=== PATIENT | male | born 1950 | race Caucasian/White ===

== ENCOUNTER → 2016-11-02 | Outpatient (CLI) | payer MEDICARE, BC | END | disposition home or self-care (01) | LOC: CVU 09:01 | PROVIDERS: ATTEND Internal Medicine Cardiovascular Disease | DX: I10 Essential (primary) hypertension (principal); E78.5 Hyperlipidemia, unspecified; R73.03 Prediabetes; F19.20 Other psychoactive substance dependence, uncomplicated; Z86.79 Personal history of other diseases of the circulatory system; Z95.1 Presence of aortocoronary bypass graft; F12.90 Cannabis use, unspecified, uncomplicated; I25.10 Atherosclerotic heart disease of native coronary artery without angina pectoris | CPT/HCPCS: 93922 ==

== ENCOUNTER → 2016-12-30 | Outpatient (CLI) | payer MEDICARE, BC ==
[~2016-12-30] MED LIST: ASCO10004 PO; ASPI-496 PO; BUSP10TA PO; CALC1CAP8 PO; CARV6.252 PO; CHOL200024 PO; CLOP75TA PO; ENAL5TAB PO; GLUC-121 PO; MARIJUANA; METF500T4 PO; MULT-309 PO; ROSU20TA PO; TESTOSTERONE IM; UBID1CAP51 PO
[2016-12-31 08:07] LABS: TESTOSTERONE TOTAL 945 ng/dL (264-916)
== END | disposition home or self-care (01) ==
LOC: LAB 11:05
PROVIDERS: ATTEND Nurse Practitioner Family
DX: Z12.5 Encounter for screening for malignant neoplasm of prostate (principal); E29.1 Testicular hypofunction
CPT/HCPCS: 36415; 84403

== ENCOUNTER 2017-01-13 08:03 | Day surgery (SDC) | payer MEDICARE, BC ==
[~2017-01-13] VITALS: Ht 185.4 cm; Wt 91.7 kg
[2017-01-13] MEDS ORDERED: LACTATED RINGERS 1,000 ML IV SCH (08:57)
[2017-01-13 09:02] VITALS: BP 130/82
[2017-01-13] MEDS ORDERED: MIDAZOLAM 1 MG/ML, 2ML ONE (09:10)
[2017-01-13] MEDS ORDERED: FENTANYL PF 100 MCG/2ML ONE ×3 (09:11→11:44)
[2017-01-13] MEDS ORDERED: BUPIVACAINE/PF-EPI 0.5% 1:200K ONE (10:18)
[2017-01-13] MEDS ORDERED: ALBUTEROL/IPRATROPIUM 2.5MG/0.5MG, 3 ML NPPB PRN (11:00)
[2017-01-13] MEDS ORDERED: MEPERIDINE/PF 25MG/0.5ML IVPush PRN (11:00)
[2017-01-13] MEDS ORDERED: PROMETHAZINE 25 MG/ML, 1ML IV PRN (11:00)
[2017-01-13] MEDS ORDERED: ACETAMINOPHEN 325 MG TABLET PO PRN (11:00)
[2017-01-13] MEDS ORDERED: hydrALAzine 20 MG/ML, 1ML IV PRN (11:00)
[2017-01-13] MEDS ORDERED: ONDANSETRON 2MG/ML, 2ML IVPush PRN (11:00)
[2017-01-13] MEDS ORDERED: MIDAZOLAM 1 MG/ML, 2ML IV PRN (11:00)
[2017-01-13] MEDS ORDERED: LABETALOL 5MG/ML, 20ML IV PRN (11:00)
[2017-01-13] MEDS ORDERED: HYDROmorphone 1 MG/ML, 1ML ONE ×2 (11:29→11:44)
[2017-01-13] MEDS: FENTANYL PF 100 MCG/2ML IV PRN ×2 (11:49→12:00)
[2017-01-13] MEDS: HYDROmorphone 1 MG/ML, 1ML IV PRN ×2 (11:53→12:13)
[2017-01-13] MEDS ORDERED: OXYcodone/APAP 5/325MG TABLET ONE (14:51)
[2017-01-13] MEDS ORDERED: OXYcodone/APAP 5/325MG TABLET PO ONE (15:00)
[2017-01-13] MEDS ORDERED: GLYCOPYRROLATE 0.2MG/1ML ONE (15:44)
[2017-01-13] MEDS ORDERED: ROCURONIUM 10 MG/ML ONE (15:44)
[2017-01-13] MEDS ORDERED: DEXAMETHASONE 4 MG/ML, 1ML ONE (15:44)
[2017-01-13] MEDS ORDERED: ONDANSETRON 2MG/ML, 2ML ONE (15:44)
[2017-01-13] MEDS ORDERED: PROPOFOL 10 MG/ML, 20ML ONE (15:44)
[2017-01-13] MEDS ORDERED: NEOSTIGMINE 1 MG/ML, 10ML ONE (15:44)
[2017-01-13] MEDS ORDERED: CEFAZOLIN 1,000 MG ONE (15:44)
== END 2017-01-13 15:00 ==
LOC: OUT 08:03
PROVIDERS: ATTEND Surgery
DX: K43.6 Other and unspecified ventral hernia with obstruction, without gangrene (principal); I25.10 Atherosclerotic heart disease of native coronary artery without angina pectoris; I10 Essential (primary) hypertension; E78.5 Hyperlipidemia, unspecified; E11.9 Type 2 diabetes mellitus without complications; Z95.1 Presence of aortocoronary bypass graft; Z98.890 Other specified postprocedural states; Z87.891 Personal history of nicotine dependence; Z72.89 Other problems related to lifestyle; Z88.6 Allergy status to analgesic agent; Z88.8 Allergy status to other drugs, medicaments and biological substances
CPT/HCPCS: 49653; 82962; C1781; J0690; J1100; J1170; J2250; J2405; J2704; J2710; J3010; J3490

== ENCOUNTER 2017-10-15 10:47 | Emergency (ER) | payer MEDICARE, OTHER ==
[~2017-10-15] VITALS: Ht 185.4 cm; Wt 87.5 kg
[2017-10-15 10:55] VITALS: BP 123/70
== END 2017-10-15 13:49 | disposition home or self-care (01) ==
LOC: ED 13:32
DX: J20.8 Acute bronchitis due to other specified organisms (principal); J44.0 Chronic obstructive pulmonary disease with (acute) lower respiratory infection; B97.89 Other viral agents as the cause of diseases classified elsewhere; I10 Essential (primary) hypertension; Z87.891 Personal history of nicotine dependence
CPT/HCPCS: 71046; 99284

== ENCOUNTER → 2018-02-17 | Outpatient (CLI) | payer MEDICARE, OTHER ==
[~2018-02-17] MED LIST changes: +METF500T17 PO; -METF500T4 PO
== END | disposition home or self-care (01) ==
LOC: CFH 10:28
PROVIDERS: ATTEND Internal Medicine Cardiovascular Disease
DX: I35.8 Other nonrheumatic aortic valve disorders (principal); I42.9 Cardiomyopathy, unspecified; I10 Essential (primary) hypertension; E78.5 Hyperlipidemia, unspecified
CPT/HCPCS: 93306

== ENCOUNTER → 2018-03-17 | Outpatient (CLI) | payer MEDICARE, OTHER | END | disposition home or self-care (01) | LOC: CFH 09:23 | PROVIDERS: ATTEND Family Medicine | DX: M47.896 Other spondylosis, lumbar region (principal); M71.38 Other bursal cyst, other site; M54.32 Sciatica, left side | CPT/HCPCS: 72148 ==

== ENCOUNTER → 2018-10-17 | Outpatient (CLI) | payer MEDICARE, OTHER ==
[~2018-10-17] MED LIST changes: -ROSU20TA PO; +ROSU20TA2 PO
== END | disposition home or self-care (01) ==
LOC: RAD 09:19
PROVIDERS: ATTEND Registered Nurse Registered Nurse First Assistant
DX: M43.5X6 Other recurrent vertebral dislocation, lumbar region (principal); M43.16 Spondylolisthesis, lumbar region
CPT/HCPCS: 72110

== ENCOUNTER 2018-12-20 07:35 | Outpatient (CLI) | payer MEDICARE, OTHER | END 2018-12-20 23:59 | disposition home or self-care (01) | LOC: CFH 07:35 | PROVIDERS: ATTEND Internal Medicine Cardiovascular Disease | DX: Z01.810 Encounter for preprocedural cardiovascular examination (principal); I25.9 Chronic ischemic heart disease, unspecified; F42.9 Obsessive-compulsive disorder, unspecified | CPT/HCPCS: 78452; 93017; A9502; J2785 ==